=== PATIENT | female | born 1960 | race Caucasian/White ===

== ENCOUNTER 2019-01-13 09:08 | Emergency (ER) | payer MEDICAID, OTHER ==
[~2019-01-13] VITALS: Ht 152.4 cm; Wt 67.6 kg
[2019-01-13 09:08] VITALS: BP 133/86
[2019-01-13] MEDS ORDERED: IBUPROFEN 600 MG TABLET PO ONE ×2 (09:28→09:30)
--- NOTE | 2019-01-13 09:34 | NUR ---
Patient discharged to home in stable condition. Written and verbal after care instructions given. Patient verbalizes understanding of instruction.
== END 2019-01-13 09:34 | disposition home or self-care (01) ==
LOC: ER 09:08
DX: S80.862A Insect bite (nonvenomous), left lower leg, initial encounter (principal); S70.362A Insect bite (nonvenomous), left thigh, initial encounter; W57.XXXA Bitten or stung by nonvenomous insect and other nonvenomous arthropods, initial encounter; Y93.89 Activity, other specified; Y92.89 Other specified places as the place of occurrence of the external cause; Y99.8 Other external cause status